=== PATIENT | male | born 1955 | race African-American/Black ===

== ENCOUNTER 2021-03-05 19:18 | Emergency (ER) | payer OTHER ==
[2021-03-05 19:47] VITALS: TEMP 99.2; BMI 32.0
[2021-03-05] MEDS ORDERED: LIDOCAINE 5% TOPICAL PATCH TP ONE (20:41)
[2021-03-05] MEDS ORDERED: LIDOCAINE 5% TOPICAL PATCH ONE (20:46)
[2021-03-05] MEDS ORDERED: morphine CARPU-JECT 2 MG/1 ML DISP.SYRIN IVPUSH ONE (21:14)
[2021-03-05] MEDS ORDERED: morphine SULFATE 4 MG/ML VIAL ONE (21:25)
[2021-03-05] MEDS ORDERED: LIDOCAINE PATCH REMOVAL MC SCH (22:00)
[2021-03-05 22:05] LABS: BASO % 0.3 % (0-2.0); EOS % 12.3 % (0-4.5); HEMOGLOBIN 11.3 GM/dL (11.7-16.9); LYMPH % 34.3 % (8-40); MCH 27.4 pg (25.7-33.7); MCHC 32.4 g/dl (32.0-35.9); MEAN CELL VOLUME 84.7 fl (80-96); MONO % 6.9 % (3.8-10.2); NEUT % 46.2 % (42.8-82.8); PLATELET COUNT 187 10^3/uL (134-434); RBC 4.13 M/mm3 (4.00-5.60); RDW 14.3 % (11.9-15.9); WHITE BLOOD COUNT 8.4 K/mm3 (4.0-10.0)
[2021-03-05 22:30] LABS: ALBUMIN 2.9 g/dl (3.4-5.0); BLOOD UREA NITROGEN 10.3 mg/dL (7-18); CALCIUM 9.3 mg/dL (8.5-10.1); MAGNESIUM 1.8 mg/dL (1.8-2.4)
[2021-03-05 22:33] LABS: CREATININE 1.1 mg/dL (0.55-1.3)
[2021-03-05 22:35] LABS: BILIRUBIN,TOTAL 0.2 mg/dL (0.2-1)
[2021-03-06] MEDS ORDERED: KETOROLAC TROMETHAMINE 15 MG/ML VIAL IVPUSH ONE
[2021-03-06] MEDS ORDERED: KETOROLAC TROMETHAMINE 15 MG/ML VIAL ONE (00:05)
[2021-03-06 00:15] VITALS: BP 165/83; PULSE 88
[2021-03-06 01:06] LABS: PH,URINE 6.5 (5.0-8.0); URINE APPEARANCE CLEAR; URINE BILIRUBIN NEGATIVE (NEGATIVE); URINE COLOR YELLOW; URINE GLUCOSE (UA) TRACE (NEGATIVE); URINE KETONE NEGATIVE (NEGATIVE); URINE LEUK ESTERASE NEGATIVE (NEGATIVE); URINE NITRITE NEGATIVE (NEGATIVE); URINE PROTEIN NEGATIVE (NEGATIVE); URINE UROBILINOGEN 0.2 mg/dL (0.2-1.0)
== END 2021-03-06 01:57 | disposition home or self-care (01) ==
LOC: JER 19:18
PROC: 3E033NZ Introduction of Analgesics, Hypnotics, Sedatives into Peripheral Vein, Percutaneous Approach (ICD-10-PCS; principal; 2021-03-05)
DX: M54.50 Low back pain, unspecified (principal)
CPT/HCPCS: 36415; 74177-TC; 80053; 81003; 83690; 83735; 85025; 87086; 99285-25; Q9967

== ENCOUNTER 2023-07-27 15:58 | Emergency (ER) | payer OTHER ==
[2023-07-27 16:26] VITALS: BMI 29.2
[2023-07-27] MEDS ORDERED: ACETAMINOPHEN INJECTION 100 ML IVPB ONE (17:06)
[2023-07-27] MEDS: SODIUM CHLORIDE 1,000 ML IV STA (17:30)
[2023-07-27] MEDS: ACETAMINOPHEN 1000 MG/100 ML BAG IVPB ONE (17:30)
[2023-07-27 17:34] LABS: BASO % 0.6 % (0-2.0); EOS % 7.9 % (0-4.5); HEMATOCRIT 37.9 % (35.4-49); HEMOGLOBIN 12.3 GM/dL (11.7-16.9); LYMPH % 16.2 % (8-40); MCH 26.9 pg (25.7-33.7); MCHC 32.3 g/dl (32.0-35.9); MEAN CELL VOLUME 83.4 fl (80-96); MEAN PLT VOLUME 9.5 fl (7.5-11.1); MONO % 8.8 % (3.8-10.2); NEUT % 66.5 % (42.8-82.8); PLATELET COUNT 182 10^3/uL (134-434); RBC 4.55 M/mm3 (4.00-5.60); RDW 15.3 % (11.9-15.9); WHITE BLOOD COUNT 8.2 K/mm3 (4.0-10.0)
[2023-07-27 17:40] LABS: INR 1.33 (0.83-1.09); PROTHROMBIN TIME (PATIENT) 15.4 SEC (9.7-13.0)
[2023-07-27 17:57] LABS: POTASSIUM 3.9 mmol/L (3.5-5.1)
[2023-07-27 17:59] LABS: MAGNESIUM 1.9 mg/dL (1.8-2.4)
[2023-07-27 18:01] LABS: ALBUMIN 3.2 g/dl (3.4-5.0); BLOOD UREA NITROGEN 27.8 mg/dL (7-18)
[2023-07-27 18:03] LABS: URINE APPEARANCE CLEAR; URINE BILIRUBIN NEGATIVE (NEGATIVE); URINE COLOR DK YELLOW; URINE GLUCOSE (UA) NEGATIVE (NEGATIVE); URINE KETONE TRACE (NEGATIVE); URINE LEUK ESTERASE NEGATIVE (NEGATIVE); URINE NITRITE NEGATIVE (NEGATIVE); URINE PROTEIN NEGATIVE (NEGATIVE); URINE UROBILINOGEN 0.2 mg/dL (0.2-1.0)
[2023-07-27 18:03] LABS: BILIRUBIN,DIRECT 0.1 mg/dL (0.0-0.2); CREATININE 1.6 mg/dL (0.55-1.3)
[2023-07-27 18:04] LABS: PHOSPHOROUS 2.9 mg/dL (2.5-4.9); TOT PROT 7.7 g/dl (6.4-8.2)
[2023-07-27 18:05] LABS: BILIRUBIN,TOTAL 0.2 mg/dL (0.2-1)
[2023-07-27 19:39] VITALS: BP 104/65; PULSE 95; RESP 15; TEMP 98.4
== END 2023-07-27 20:30 | disposition left against medical advice (07) ==
LOC: JER 15:58
PROC: 3E033NZ Introduction of Analgesics, Hypnotics, Sedatives into Peripheral Vein, Percutaneous Approach (ICD-10-PCS; principal; 2023-07-27)
PROC: 3E0337Z Introduction of Electrolytic and Water Balance Substance into Peripheral Vein, Percutaneous Approach (ICD-10-PCS; 2023-07-27)
DX: R19.7 Diarrhea, unspecified (principal); R10.32 Left lower quadrant pain; R50.9 Fever, unspecified; R63.0 Anorexia
CPT/HCPCS: 36415; 71045-TC-FY; 74176-TC; 80053; 81003; 82140; 82248; 83605; 83690; 83735; 84100; 85025; 85610; 85730; 87040; 87086; 93005; 93010; 99285-25; J0131